=== PATIENT | male | born 1970 | race African-American/Black ===

== ENCOUNTER 2018-10-22 09:30 | Inpatient (IN) | payer OTHER ==
[2018-10-22 10:07] VITALS: BMI 37.6
--- NOTE | 2018-10-22 10:34 | HP ---
CIWA Score - Admission Criteria [facility] Guidelines: Admission for Medically Managed Detox: Requires at least one of the followin. CIWA greater than 12 2. Seizures within the past 24 hours 3. Delirium tremens within the past 24 hours 4. Hallucinations within the past 24 hours 5. Acute intervention needed for co occurring medical disorder 6. Acute intervention needed for co occurring psychiatric disorder 7. Severe withdrawal that cannot be handled at a lower level of care (continued vomiting, continued diarrhea, abnormal vital signs) requiring intravenous medication and/or fluids 8. Admission ROS S - HPI Chief Complaint: I have a cocaine problem and need to stop using it. Allergies/Adverse Reactions: Allergies Allergy/AdvReac Type Severity Reaction Status Date / Time Penicillins Allergy Severe Difficulty Verified 10/22/18 10:04 Breathing History of Present Illness: Male pt attending [facility] and was referred to rehab by his counselor. Exam Limitations: No Limitations - Ebola screening Have you traveled outside of the country in the last 21 days: No Have you had contact with anyone from an Ebola affected area: No Have you been sick,other than usual withdrawal symptoms: No Do you have a fever: No - Review of Systems Constitutional: No Symptoms Reported EENT: reports: Dental Problems (missing teeth) Respiratory: reports: SOB with Exertion Cardiac: reports: Other (h/o aortic mass) GI: reports: No Symptoms Reported : reports: No Symptoms Reported Musculoskeletal: reports: Other (h/o oneyda THR) Integumentary: reports: No Symptoms Reported Neuro: reports: No Symptoms reported Endocrine: reports: No Symptoms Reported Hematology: reports: No Symptoms Reported Psychiatric: reports: Orientated x3, other (h/o bipoalr d/o) Other Systems: Reviewed and Negative Patient History - Patient Medical History Hx Anemia: No Hx Asthma: No Hx Chronic Obstructive Pulmonary Disease (COPD): No Hx Cancer: No Hx Cardiac Disorders: No Hx Congestive Heart Failure: No Hx Hypertension: No Hx Hypercholesterolemia: No Hx Pacemaker: No HX Cerebrovascular Accident: No Hx Seizures: No Hx Dementia: No Hx Diabetes: No Hx Gastrointestinal Disorders: No Hx Liver Disease: No Hx Genitourinary Disorders: No Hx Sexually Transmitted Disorders: No Hx Renal Disease (ESRD): No Hx Thyroid Disease: No Hx Human Immunodeficiency Virus (HIV): No (2017-negative) Hx Hepatitis C: No Hx Depression: No Hx Suicide Attempt: No Hx Bipolar Disorder: Yes (notnot taking meds x 2 months ,depakote,risperdal) Hx Schizophrenia: No - Patient Surgical History Past Surgical History: Yes Hx Neurologic Surgery: No Hx Cataract Extraction: No Hx Cardiac Surgery: Yes (aortic mass removed -[facility]) Hx Lung Surgery: No Hx Breast Surgery: No Hx Breast Biopsy: No Hx Abdominal Surgery: No Hx Appendectomy: No Hx Cholecystectomy: No Hx Genitourinary Surgery: No Hx Orthopedic Surgery: Yes (Bilateral hip replacement 2015 and 2016) Anesthesia Reaction: No - PPD History Previous Implant?: No Documented Results: Negative w/o proof PPD to be Administered?: Yes - Reproductive History Patient is a Female of Child Bearing Age (11 -55 yrs old): No - Smoking Cessation Smoking history: Current every day smoker Have you smoked in the past 12 months: Yes Aproximately how many cigarettes per day: 8 Cigars Per Day: 0 Hx Chewing Tobacco Use: No Initiated information on smoking cessation: Yes 'Breaking Loose' booklet given: 10/22/18 - Substance & Tx. History Hx Alcohol Use: Yes (1 x /month ) Hx Substance Use: Yes (cocaine sniffs 1 gm every other day) Substance Use Type: Cocaine Hx Substance Use Treatment: Yes ( [facility]) - Substances Abused Cocaine Route: Inhalation Frequency: 3-6 times per week Amount used: 1 gram Age of first use: 19 Date of Last Use: 10/19/18 Family Disease History - Family Disease History Family History: Denies Admission Physical Exam BHS - Vital Signs Vital Signs: Vital Signs - 24 hr 10/22/18 10:04 Temperature 98.9 F Pulse Rate 119 H Respiratory 20 Rate Blood Pressure 109/78 48 y/o m pt aox3 in nad ambulating well and cooperative with exam. - Physical General Appearance: Yes: Within Normal Limits, No Apparent Distress, Appropriately Dressed, Obese HEENTM: Yes: EOMI, Hearing grossly Normal, Normal ENT Inspection, Pharynx Normal Respiratory: Yes: Chest Non-Tender, Lungs Clear, Normal Breath Sounds, No Respiratory Distress Neck: Yes: Within Normal Limits, No masses,lesions,Nodules, Supple, Trachea in good position Breast: Yes: Within Normal Limits Cardiology: Yes: Regular Rhythm, S1, S2, Tachycardia, Surgical Scar (well healed sternotomy) Abdominal: Yes: Normal Bowel Sounds, Non Tender, Soft, Protuberent Genitourinary: Yes: Within Normal Limits Back: Yes: Within Normal Limits Musculoskeletal: Yes: Other (well healed oneyda hip scars) Extremities: Yes: Within Normal Limits Neurological: Yes: Within Normal Limits, foot worker II-XII NML intact, Fully Oriented, Alert, Motor Strength 5/5 Integumentary: Yes: Within Normal Limits Lymphatic: Yes: Within Normal Limits - Diagnostic (1) Cocaine dependence Current Visit: Yes Status: Chronic Qualifiers: Substance use status: uncomplicated Qualified Code(s): F14.20 - Cocaine dependence, uncomplicated (2) Nicotine abuse Current Visit: Yes Status: Chronic (3) S/P bilateral hip replacements Current Visit: Yes Status: Resolved (4) H/O aortic aneurysm repair Current Visit: Yes Status: Resolved Cleared for Admission [facility] - Detox or Rehab Claeared for Rehab Admission: Yes [facility] Breath Alcohol Content Breath Alcohol Content: 0 Urine Drug Screen - Results Drug Screen Negative: Yes
[2018-10-22] MEDS ORDERED: IBUPROFEN 400 MG TABLET (FP) PO PRN (10:49)
[2018-10-22] MEDS ORDERED: MAGNESIUM CITRATE 300 ML BOTTLE PO PRN (10:49)
[2018-10-22] MEDS ORDERED: MAG HYDROX/AL HYDROX/SIMETH 30 ML UNIT-DOSE CUP PO PRN (10:49)
[2018-10-22] MEDS ORDERED: LOPERAMIDE HCL 2 MG CAPSULE PO PRN (10:49)
[2018-10-22] MEDS ORDERED: ACETAMINOPHEN 325 MG TABLET (FP) PO PRN (10:49)
[2018-10-22] MEDS ORDERED: NICOTINE POLACRILEX 2 MG GUM BUC PRN (10:49)
[2018-10-22] MEDS ORDERED: MAGNESIUM HYDROX 2400MG/30ML ORAL SUSPENSION 30 ML CUP PO PRN (10:49)
[2018-10-22 14:38] LABS: HEMATOCRIT 44.2 % (35.4-49); HEMOGLOBIN 14.2 GM/dL (11.7-16.9); MCH 26.8 pg (25.7-33.7); MCHC 32.1 g/dl (32.0-35.9); MEAN CELL VOLUME 83.6 fl (80-96); MEAN PLT VOLUME 8.3 fl (7.5-11.1); PLATELET COUNT 234 K/MM3 (134-434); RBC 5.28 M/mm3 (4.00-5.60); RDW 14.9 % (11.9-15.9); WHITE BLOOD COUNT 4.2 K/mm3 (4.0-10.0)
[2018-10-22 15:03] LABS: ALBUMIN 4.1 g/dl (3.4-5.0); ALK PHOS 73 U/L (45-117); ANION GAP 10 MMOL/L (8-16); BILIRUBIN,TOTAL 0.4 mg/dL (0.2-1); BLOOD UREA NITROGEN 20 mg/dL (7-18); CALCIUM 8.9 mg/dL (8.5-10.1); CHLORIDE 107 mmol/L (98-107); CO2 23 mmol/L (21-32); CREATININE 1.6 mg/dL (0.55-1.3); GLUCOSE,RANDOM 118 mg/dL (74-106); POTASSIUM 4.3 mmol/L (3.5-5.1); SGOT/AST 19 U/L (15-37); SGPT/ALT 21 U/L (13-61); SODIUM 140 mmol/L (136-145); TOT PROT 7.9 g/dl (6.4-8.2)
[2018-10-22] MEDS: MELATONIN 5 MG TABLETS PO PRN (21:52)
[2018-10-22] MEDS: THIAMINE HCL 100 MG TABLET (FP) PO SCH (21:52)
--- NOTE | 2018-10-23 09:35 | HP ---
Psychiatrist Admission - Data Date of interview: 10/23/18 Admission source: [facility] Identifying data: This is the third [facility] admission for this 48 years old single Black male, unemployed on public assistance, domiciled living alone Medical History: iSignificant for arthritis both knees, hstory of surgery for bilateral hip replacement in 2016, 2017 and removal of aortic mass. Smokes 8 cigarettes daily Psychiatric History: Reports being diagnosed with Bipolar Disorder with one previous brief(72 hrs)psychiatric hospitalization at [facility] for hearing voices. Claims that he was picked up in the street by police. Reports receiving [facility] care at [facility] in [facility] and he is now in [facility]. Reports that he last took medications 2 months ago( Depakote, Risperdal and Remeron) prescribed by Dr Santos. Told show card writer that he has not seen the psychiatrist yet at [facility]. Denies previous suicidal attempt. At present, denies experiencing psychotic, manic or depressive symptoms as well as S/H ideations Physical/Sexual Abuse/Trauma History: Denies history of emotional, physical or sexual abuse as well as DV relationship. No service Additional Comment: Reports history of multiple previous arrests including 5 felony convictions. No parole/probation at present Vital Signs: Vital Signs - 24 hr 10/22/18 10/23/18 10/23/18 10:04 01:23 03:30 Temperature 98.9 F Pulse Rate 119 H Respiratory 20 16 16 Rate Blood Pressure 109/78 10/23/18 06:23 Temperature 97.7 F Pulse Rate 107 H Respiratory 20 Rate Blood Pressure 137/92 Allergies/Adverse Reactions: Allergies Allergy/AdvReac Type Severity Reaction Status Date / Time Penicillins Allergy Severe Difficulty Verified 10/22/18 10:04 Breathing Date of last physical exam: 10/22/18 Concur with the findings of this exam: Yes - Substance Abuse/Tx History Hx Alcohol Use: No Hx Substance Use: Yes Substance Use Type: Cocaine (Started using cocaine at age 19, consumes one gram 3-6 times weekly. Last used on 10/19/18) Hx Substance Use Treatment: Yes (3 pevious inpt rehab admissions) Mental Status Exam - Mental Status Exam Alert and Oriented to: Place, Person Cognitive Function: Fair Patient Appearance: Disheveled Mood: Hopeful, Euthymic Patient Behavior: Cooperative Speech Pattern: Clear Voice Loudness: Normal Thought Process: Intact, Goal Oriented Thought Disorder: Not Present Hallucinations: Denies Suicidal Ideation: Denies Homicidal Ideation: Denies Insight/Judgement: Fair Sleep: Fair Appetite: Good Muscle strength/Tone: Normal Gait/Station: Normal Psychiatric Findings - Problem List ([place] 1, 2,3) (1) Cocaine dependence Current Visit: Yes Status: Acute Qualifiers: Substance use status: uncomplicated Qualified Code(s): F14.20 - Cocaine dependence, uncomplicated (2) Nicotine dependence Current Visit: Yes Status: Chronic (3) Bipolar disorder Current Visit: Yes Status: Chronic (4) H/O aortic aneurysm repair Current Visit: Yes Status: Resolved (5) S/P bilateral hip replacements Current Visit: Yes Status: Resolved (6) Arthritis of both knees Current Visit: Yes Status: Chronic - Initial Treatment Plan Initial Treatment Plan: 1) Start Risperdal 1 mg po BID and Depakote 500 mg po BID. 2) Monitor progress
[2018-10-23] MEDS: PRENATAL VITAMINS W/ FOLIC ACID TABLET (FP) PO SCH (10:01)
[2018-10-23] MEDS: DIVALPROEX SODIUM 500 MG TABLET E.C. PO SCH ×2 (12:01→21:05)
[2018-10-23] MEDS: risperiDONE 1 MG TABLET (FP) PO SCH ×2 (12:01→21:05)
[2018-10-23] MEDS: THIAMINE HCL 100 MG TABLET (FP) PO SCH (21:04)
[2018-10-24] MEDS: PRENATAL VITAMINS W/ FOLIC ACID TABLET (FP) PO SCH (09:45)
[2018-10-24] MEDS: DIVALPROEX SODIUM 500 MG TABLET E.C. PO SCH ×2 (09:45→21:13)
[2018-10-24] MEDS: risperiDONE 1 MG TABLET (FP) PO SCH ×2 (09:46→21:13)
[2018-10-24 15:16] LABS: URINE APPEARANCE CLEAR; URINE BILIRUBIN NEGATIVE (<2.0 mg/dL); URINE COLOR LTYELLOW; URINE GLUCOSE (UA) NEGATIVE (NEGATIVE); URINE KETONE NEGATIVE (NEGATIVE); URINE LEUK ESTERASE NEGATIVE (NEGATIVE); URINE NITRITE NEGATIVE (NEGATIVE); URINE PROTEIN NEGATIVE (NEGATIVE); URINE UROBILINOGEN NEGATIVE mg/dL (0.2-1.0)
[2018-10-24] MEDS: THIAMINE HCL 100 MG TABLET (FP) PO SCH (21:13)
[2018-10-25] MEDS: PRENATAL VITAMINS W/ FOLIC ACID TABLET (FP) PO SCH (10:08)
[2018-10-25] MEDS: DIVALPROEX SODIUM 500 MG TABLET E.C. PO SCH ×2 (10:08→22:28)
[2018-10-25] MEDS: risperiDONE 1 MG TABLET (FP) PO SCH ×2 (10:08→22:28)
[2018-10-25] MEDS: THIAMINE HCL 100 MG TABLET (FP) PO SCH (22:28)
[2018-10-26] MEDS: DIVALPROEX SODIUM 500 MG TABLET E.C. PO SCH ×2 (09:50→22:02)
[2018-10-26] MEDS: PRENATAL VITAMINS W/ FOLIC ACID TABLET (FP) PO SCH (09:50)
[2018-10-26] MEDS: risperiDONE 1 MG TABLET (FP) PO SCH ×2 (09:50→22:02)
[2018-10-26] MEDS: THIAMINE HCL 100 MG TABLET (FP) PO SCH (22:02)
[2018-10-27] MEDS: DIVALPROEX SODIUM 500 MG TABLET E.C. PO SCH (09:49)
[2018-10-27] MEDS: PRENATAL VITAMINS W/ FOLIC ACID TABLET (FP) PO SCH (09:49)
[2018-10-27] MEDS: risperiDONE 1 MG TABLET (FP) PO SCH ×2 (09:49→21:41)
--- NOTE | 2018-10-27 10:44 | PN ---
[facility] Progress Note Note: PATIENT C/O SOB WHICH MAINLY OCCURS IN THE MORNING. PATIENT HAS HX OF TOBACCO USE. DENIES FEVER, COUGH AND CHEST PAIN. Vital Signs Temperature 97.7 F 10/27/18 06:00 Pulse Rate 111 H 10/27/18 06:00 Respiratory Rate 18 10/27/18 06:00 Blood Pressure 147/94 10/27/18 06:00 O2 Sat by Pulse Oximetry (%) Laboratory Tests 10/22/18 10/22/18 10/22/18 11:10 11:10 11:10 WBC 4.2 RBC 5.28 Hgb 14.2 Hct 44.2 MCV 83.6 MCH 26.8 MCHC 32.1 RDW 14.9 Plt Count 234 MPV 8.3 Sodium 140 Potassium 4.3 Chloride 107 Carbon Dioxide 23 Anion Gap 10 BUN 20 H Creatinine 1.6 H Creat Clearance w eGFR 46.37 Random Glucose 118 H Calcium 8.9 Total Bilirubin 0.4 AST 19 ALT 21 Alkaline Phosphatase 73 Total Protein 7.9 Albumin 4.1 Urine Color Urine Appearance Urine pH Ur Specific [place] Urine Protein Urine Glucose (UA) Urine Ketones Urine Blood Urine Nitrite Urine Bilirubin Urine Urobilinogen Ur Leukocyte Esterase RPR Titer Nonreactive 10/24/18 10:20 WBC RBC Hgb Hct MCV MCH MCHC RDW Plt Count MPV Sodium Potassium Chloride Carbon Dioxide Anion Gap BUN Creatinine Creat Clearance w eGFR Random Glucose Calcium Total Bilirubin AST ALT Alkaline Phosphatase Total Protein Albumin Urine Color Ltyellow Urine Appearance Clear Urine pH 6.0 Ur Specific [place] 1.017 Urine Protein Negative Urine Glucose (UA) Negative Urine Ketones Negative Urine Blood Negative Urine Nitrite Negative Urine Bilirubin Negative Urine Urobilinogen Negative Ur Leukocyte Esterase Negative RPR Titer PE: SKIN WARM AND DRY CAR S1S2 RESP +SCATTERED BILATERAL WHEEZES, NO RHONCHI OR RALES EXT FULL ROM, AMB AD JOHN A/P: WHEEZING TOBACCO USE WILL START ALBUTEROL INHALER PRN CONTINUE TO MONITOR CLINICALLY
--- NOTE | 2018-10-27 11:32 | PN ---
Psychiatric Progress Note Vital Signs: Vital Signs Period Temp Pulse Resp BP Sys/Michaels Pulse Ox Last 24 Hr 97.7 F 111 16-18 147/94 Date of Session: 10/27/18 Chief Complaint:: Bronson having dry mouth and constipatione from Depakote. HPI: Patient addressed Alcohol anf Cocaine dependence comorbid Bipolar disorder. ROS: Significant for HTN,H/O bilateral Hip replacement. Current Medications: Active Medications Generic Name Dose Route Start Last Admin Trade Name Freq PRN Reason Stop Dose Admin Acetaminophen 650 mg 10/22/18 10:49 Tylenol - PO Q4H PRN FEVER Al Hydroxide/Mg Hydroxide 30 ml 10/22/18 10:49 Mylanta Oral Suspension - PO Q6H PRN DYSPEPSIA Albuterol Sulfate 2 puff 10/27/18 10:38 Ventolin Hfa Inhaler - IH Q4H PRN SHORT OF BREATH/WHEEZING Divalproex Sodium 250 mg 10/27/18 11:22 Depakote - PO BID VITO Eucalyptus/Menthol/Phenol/Sorbitol 1 each 10/22/18 10:49 Cepastat Lozenge - MM Q4H PRN SORE THROAT Guaifenesin 10 ml 10/22/18 10:49 Robitussin Dm - PO Q6H PRN COUGH Ibuprofen 400 mg 10/22/18 10:49 Motrin - PO Q6H PRN Pain level 4-6 Loperamide HCl 4 mg 10/22/18 10:49 Imodium - PO Q6H PRN DIARRHEA Magnesium Citrate 300 ml 10/22/18 10:49 Citroma - PO Q48H PRN CONSTIPATION Magnesium Hydroxide 30 ml 10/22/18 10:49 Milk Of Magnesia - PO DAILY PRN CONSTIPATION Melatonin 5 mg 10/22/18 22:00 10/22/18 21:52 Melatonin PO 5 mg HS PRN Administration INSOMNIA Nicotine Polacrilex 2 mg 10/22/18 10:49 10/27/18 09:50 Nicorette Gum - BUC 2 mg Q2H PRN Administration NICOTINE REPLACEMENT RX Multivit/Folic Acid/Iron 1 tab 10/23/18 10:00 10/27/18 09:49 Vitamins (Sjr) - PO 1 tab DAILY VITO Administration Pseudoephedrine/Triprolidine 1 combo 10/22/18 10:49 Actifed - PO TID PRN NASAL CONGESTION Risperidone 1 mg 10/23/18 11:45 10/27/18 09:49 Risperdal - PO 1 mg BID VITO Administration Thiamine HCl 100 mg 10/22/18 22:00 10/26/18 22:02 Vitamin B1 - PO Not Given HS VITO Current Side Effect: No Lab tests ordered: No Lab tests reviewed: Yes Provider note:: Chart was revuewed,'s notes aprreciated,met with patient.He addressed GI problems started recently since he was placed on Depakote.He reports some nausea,dry mouth and constipation.Properties of Depakote has been discussed with the patient including side effects,benefits and dose adjustment. Depakote 500 mg po bid will be tapered down to 250 mg po bid. Supportive therapy provided. Mental Status Exam - Mental Status Exam Alert and Oriented to: Time, Place, Person Cognitive Function: Grossly Intact Patient Appearance: Well Groomed Mood: Sad Affect: Mood Congruent, Labile Patient Behavior: Cooperative Speech Pattern: Clear Voice Loudness: Normal Thought Process: Goal Oriented Hallucinations: Denies Suicidal Ideation: Denies Homicidal Ideation: Denies Insight/Judgement: Fair Sleep: Fair Appetite: Good Muscle strength/Tone: Normal Gait/Station: Normal Psychiatric Treatment Plan - Problem List (1) Cocaine dependence Current Visit: Yes Qualifiers: Substance use status: uncomplicated Qualified Code(s): F14.20 - Cocaine dependence, uncomplicated (2) Nicotine abuse Current Visit: Yes (3) H/O aortic aneurysm repair Current Visit: Yes (4) S/P bilateral hip replacements Current Visit: Yes (5) Arthritis Current Visit: No (6) Alcohol dependence Current Visit: Yes (7) Cocaine abuse Current Visit: No (8) Nicotine dependence Current Visit: No (9) PCP (phencyclidine) abuse Current Visit: No (10) Thymoma Current Visit: No
[2018-10-27] MEDS ORDERED: DIVALPROEX SODIUM 250 MG TABLET E.C. PO SCH (12:30)
[2018-10-27] MEDS: ALBUTEROL SO4 8 GM HFA INHALER IH PRN (14:00)
[2018-10-27] MEDS: THIAMINE HCL 100 MG TABLET (FP) PO SCH (21:41)
[2018-10-27] MEDS: DIVALPROEX SODIUM 250 MG TABLET E.C. PO SCH (21:42)
[2018-10-28] MEDS: PRENATAL VITAMINS W/ FOLIC ACID TABLET (FP) PO SCH (09:55)
[2018-10-28] MEDS: DIVALPROEX SODIUM 250 MG TABLET E.C. PO SCH ×2 (09:55→21:39)
[2018-10-28] MEDS: risperiDONE 1 MG TABLET (FP) PO SCH ×2 (09:55→21:39)
[2018-10-28] MEDS: ALBUTEROL SO4 8 GM HFA INHALER IH PRN ×2 (09:57→21:40)
[2018-10-28] MEDS: THIAMINE HCL 100 MG TABLET (FP) PO SCH (21:39)
[2018-10-29] MEDS: risperiDONE 1 MG TABLET (FP) PO SCH ×2 (10:11→21:25)
[2018-10-29] MEDS: PRENATAL VITAMINS W/ FOLIC ACID TABLET (FP) PO SCH (10:11)
[2018-10-29] MEDS: DIVALPROEX SODIUM 250 MG TABLET E.C. PO SCH ×2 (10:11→21:25)
[2018-10-29] MEDS: ALBUTEROL SO4 8 GM HFA INHALER IH PRN (10:14)
[2018-10-29] MEDS ORDERED: ALBUTEROL SO4 0.083% IH SOL 2.5 MG/3 ML VIAL.NEB. NEB PRN (10:21)
[2018-10-29] MEDS: THIAMINE HCL 100 MG TABLET (FP) PO SCH (21:25)
[2018-10-29] MEDS: P-EPHED 60MG/TRIPROLIDI 2.5MG TABLET PO PRN (21:26)
[2018-10-30] MEDS: PRENATAL VITAMINS W/ FOLIC ACID TABLET (FP) PO SCH (10:04)
[2018-10-30] MEDS: risperiDONE 1 MG TABLET (FP) PO SCH ×2 (10:04→21:12)
[2018-10-30] MEDS: DIVALPROEX SODIUM 250 MG TABLET E.C. PO SCH ×2 (10:04→21:12)
[2018-10-30] MEDS: P-EPHED 60MG/TRIPROLIDI 2.5MG TABLET PO PRN (10:05)
[2018-10-30] MEDS ORDERED: PT OWN MED DRAWER 7, Y5N ONE (10:37)
[2018-10-30] MEDS: ALBUTEROL SO4 8 GM HFA INHALER IH PRN ×2 (14:02→21:12)
[2018-10-30] MEDS: THIAMINE HCL 100 MG TABLET (FP) PO SCH (21:12)
[2018-10-31] MEDS: PRENATAL VITAMINS W/ FOLIC ACID TABLET (FP) PO SCH (10:02)
[2018-10-31] MEDS: risperiDONE 1 MG TABLET (FP) PO SCH ×2 (10:02→21:21)
[2018-10-31] MEDS: DIVALPROEX SODIUM 250 MG TABLET E.C. PO SCH ×2 (10:02→21:21)
[2018-10-31] MEDS: ALBUTEROL SO4 8 GM HFA INHALER IH PRN (10:03)
[2018-10-31] MEDS: THIAMINE HCL 100 MG TABLET (FP) PO SCH (21:21)
[2018-10-31] MEDS: guaiFENesin/D-METHORPHAN HB 10 ML UNIT-DOSE CUPS PO PRN (21:21)
[2018-10-31] MEDS: MENTHOL/PHENOL 1 EACH UD MM PRN (21:23)
[2018-11-01] MEDS: DIVALPROEX SODIUM 250 MG TABLET E.C. PO SCH ×2 (09:28→21:23)
[2018-11-01] MEDS: PRENATAL VITAMINS W/ FOLIC ACID TABLET (FP) PO SCH (09:28)
[2018-11-01] MEDS: risperiDONE 1 MG TABLET (FP) PO SCH ×2 (09:28→21:23)
[2018-11-01] MEDS: ALBUTEROL SO4 8 GM HFA INHALER IH PRN ×2 (09:30→21:24)
[2018-11-01] MEDS: guaiFENesin/D-METHORPHAN HB 10 ML UNIT-DOSE CUPS PO PRN (09:30)
[2018-11-01] MEDS: MENTHOL/PHENOL 1 EACH UD MM PRN (09:30)
[2018-11-01] MEDS: THIAMINE HCL 100 MG TABLET (FP) PO SCH (21:23)
[2018-11-02] MEDS: PRENATAL VITAMINS W/ FOLIC ACID TABLET (FP) PO SCH (09:47)
[2018-11-02] MEDS: risperiDONE 1 MG TABLET (FP) PO SCH ×2 (09:47→21:19)
[2018-11-02] MEDS: DIVALPROEX SODIUM 250 MG TABLET E.C. PO SCH ×2 (09:47→21:19)
[2018-11-02] MEDS: guaiFENesin/D-METHORPHAN HB 10 ML UNIT-DOSE CUPS PO PRN (09:48)
[2018-11-02] MEDS: MENTHOL/PHENOL 1 EACH UD MM PRN (09:48)
[2018-11-02] MEDS ORDERED: PT OWN MED DRAWER 7, Y5N ONE (16:41)
[2018-11-02] MEDS: MELATONIN 5 MG TABLETS PO PRN (21:19)
[2018-11-02] MEDS: THIAMINE HCL 100 MG TABLET (FP) PO SCH (21:19)
[2018-11-03] MEDS ORDERED: ALBUTEROL SO4 2.5/IPRATROPIUM 0.5 INH SOL 3 ML VIAL.NEB. NEB PRN (07:10)
[2018-11-03] MEDS: risperiDONE 1 MG TABLET (FP) PO SCH ×2 (10:06→21:08)
[2018-11-03] MEDS: PRENATAL VITAMINS W/ FOLIC ACID TABLET (FP) PO SCH (10:06)
[2018-11-03] MEDS: DIVALPROEX SODIUM 250 MG TABLET E.C. PO SCH ×2 (10:06→21:08)
[2018-11-03] MEDS: MENTHOL/PHENOL 1 EACH UD MM PRN (10:07)
[2018-11-03] MEDS: THIAMINE HCL 100 MG TABLET (FP) PO SCH (21:08)
[2018-11-03] MEDS ORDERED: PT OWN MED DRAWER 7, Y5N ONE (21:08)
[2018-11-03] MEDS: ALBUTEROL SO4 8 GM HFA INHALER IH PRN (21:09)
[2018-11-03] MEDS: MELATONIN 5 MG TABLETS PO PRN (21:32)
[2018-11-04] MEDS: PRENATAL VITAMINS W/ FOLIC ACID TABLET (FP) PO SCH (09:33)
[2018-11-04] MEDS: risperiDONE 1 MG TABLET (FP) PO SCH ×2 (09:33→21:02)
[2018-11-04] MEDS: DIVALPROEX SODIUM 250 MG TABLET E.C. PO SCH ×2 (09:33→21:02)
[2018-11-04] MEDS: MENTHOL/PHENOL 1 EACH UD MM PRN (09:34)
[2018-11-04] MEDS: guaiFENesin/D-METHORPHAN HB 10 ML UNIT-DOSE CUPS PO PRN (09:36)
[2018-11-04] MEDS: ALBUTEROL SO4 8 GM HFA INHALER IH PRN (09:51)
[2018-11-04] MEDS ORDERED: ALBUTEROL SO4 2.5/IPRATROPIUM 0.5 INH SOL 3 ML VIAL.NEB. NEB SCH (10:00)
[2018-11-04] MEDS: ALBUTEROL SO4 2.5/IPRATROPIUM 0.5 INH SOL 3 ML VIAL.NEB. NEB SCH ×3 (11:59→21:03)
[2018-11-04] MEDS: THIAMINE HCL 100 MG TABLET (FP) PO SCH (21:02)
--- NOTE | 2018-11-05 06:41 | PN ---
Psychiatric Progress Note Vital Signs: Vital Signs Period Temp Pulse Resp BP Sys/Michaels Pulse Ox Last 24 Hr 97.7 F 115 18-20 135/78 Date of Session: 11/05/18 Chief Complaint:: Discharge Note HPI: Patient addressing Cocaine Dependence comorbid with Nicotine Dependence and Bipolar Disorder ROS: Arthritis both knees Current Medications: Active Medications Generic Name Dose Route Start Last Admin Trade Name Freq PRN Reason Stop Dose Admin Acetaminophen 650 mg 10/22/18 10:49 Tylenol - PO Q4H PRN FEVER Al Hydroxide/Mg Hydroxide 30 ml 10/22/18 10:49 Mylanta Oral Suspension - PO Q6H PRN DYSPEPSIA Albuterol Sulfate 2 puff 10/27/18 10:38 11/04/18 09:51 Ventolin Hfa Inhaler - IH 2 inh Q4H PRN Administration SHORT OF BREATH/WHEEZING Albuterol/Ipratropium 1 amp 11/04/18 12:00 11/04/18 21:03 Duoneb - NEB Not Given RQID VITO Divalproex Sodium 250 mg 10/27/18 22:00 11/04/18 21:02 Depakote - PO 250 mg BID VITO Administration Eucalyptus/Menthol/Phenol/Sorbitol 1 each 10/22/18 10:49 11/04/18 09:34 Cepastat Lozenge - MM 1 each Q4H PRN Administration SORE THROAT Guaifenesin 10 ml 10/22/18 10:49 11/04/18 09:36 Robitussin Dm - PO 10 ml Q6H PRN Administration COUGH Ibuprofen 400 mg 10/22/18 10:49 10/29/18 06:42 Motrin - PO 400 mg Q6H PRN Administration Pain level 4-6 Loperamide HCl 4 mg 10/22/18 10:49 Imodium - PO Q6H PRN DIARRHEA Magnesium Citrate 300 ml 10/22/18 10:49 Citroma - PO Q48H PRN CONSTIPATION Magnesium Hydroxide 30 ml 10/22/18 10:49 10/28/18 12:16 Milk Of Magnesia - PO 30 ml DAILY PRN Administration CONSTIPATION Melatonin 5 mg 10/22/18 22:00 11/03/18 21:32 Melatonin PO 5 mg HS PRN Administration INSOMNIA Nicotine Polacrilex 2 mg 10/22/18 10:49 10/27/18 09:50 Nicorette Gum - BUC 2 mg Q2H PRN Administration NICOTINE REPLACEMENT RX Multivit/Folic Acid/Iron 1 tab 10/23/18 10:00 11/04/18 09:33 Vitamins (Sjr) - PO 1 tab DAILY VITO Administration Pseudoephedrine/Triprolidine 1 combo 10/22/18 10:49 10/30/18 10:05 Actifed - PO 1 combo TID PRN Administration NASAL CONGESTION Risperidone 1 mg 10/23/18 11:45 11/04/18 21:02 Risperdal - PO 1 mg BID VITO Administration Thiamine HCl 100 mg 10/22/18 22:00 11/04/18 21:02 Vitamin B1 - PO 100 mg HS VITO Administration Current Side Effect: No Lab tests ordered: Yes Lab tests reviewed: Yes Provider note:: Patient has completed this program today. He has met his treatment goals and will continue to address his issues in outpatient treatment at [facility]. Told board writer that from his participation in this program, he has learned the negative consequences of addiction on his health. He responded well to Risperdal 1 mg po BID and Depakote 250 mg po BID. Scripts for 30 days supply of these medications are electronically transmitted to [facility] at [address] [place] [address]. He is stable for discharge today Total face to face time:: 35 Mental Status Exam - Mental Status Exam Alert and Oriented to: Time, Place, Person Cognitive Function: Fair Patient Appearance: Well Groomed Mood: Hopeful, Euthymic Affect: Appropriate Patient Behavior: Cooperative Speech Pattern: Clear Voice Loudness: Normal Thought Process: Intact, Goal Oriented Thought Disorder: Not Present Hallucinations: Denies Suicidal Ideation: Denies Homicidal Ideation: Denies Insight/Judgement: Fair Sleep: Fair Appetite: Fair Muscle strength/Tone: Normal Gait/Station: Normal Psychiatric Treatment Plan - Problem List (1) Nicotine dependence Current Visit: No (2) Arthritis Current Visit: Yes (3) Thymoma Current Visit: Yes (4) Alcohol withdrawal Current Visit: No (5) Cocaine abuse Current Visit: Yes (6) Alcohol dependence with uncomplicated withdrawal Current Visit: No Initial treatment plan: Patient is discharged today and referred to [facility] for outpatient treatment
[2018-11-05 07:20] VITALS: BP 138/81; PULSE 100; TEMP 97.8
== END 2018-11-05 08:25 | disposition home or self-care (01) | DRG 772 ==
LOC: YASAS 09:30 → Y3W 11:18 → MERGE 11:18
PROVIDERS: ADMIT Psychiatry & Neurology Psychiatry; ATTEND Psychiatry & Neurology Psychiatry
PROC: HZ42ZZZ Group Counseling for Substance Abuse Treatment, Cognitive-Behavioral (ICD-10-PCS; principal; 2018-10-22)
DX: F10.20 Alcohol dependence, uncomplicated (principal); F14.20 Cocaine dependence, uncomplicated; F16.10 Hallucinogen abuse, uncomplicated; F17.210 Nicotine dependence, cigarettes, uncomplicated; F31.9 Bipolar disorder, unspecified; D15.0 Benign neoplasm of thymus; M13.862 Other specified arthritis, left knee; M13.861 Other specified arthritis, right knee; R06.2 Wheezing; R00.0 Tachycardia, unspecified; Z88.0 Allergy status to penicillin; Z86.79 Personal history of other diseases of the circulatory system; Z96.643 Presence of artificial hip joint, bilateral
CPT/HCPCS: 36415; 80053; 80164; 81003; 85027; 86593; 94640; J2794